=== PATIENT | female | born 1950 | race Caucasian/White ===

== ENCOUNTER 2021-01-01 10:10 | Outpatient (CLI) | payer MEDICARE, BC ==
[2021-01-01 11:39] LABS: Bilirubin Neg (Negative); Blood, Urine 10 (Negative); Clarity Clear (Clear); Glucose, Urine (Dipstick) Normal (Negative); Ketone, Urine Negative (Negative); Leukocyte Negative (Negative); Nitrite Negative (Negative); Protein, Urine (Dipstick) Negative (Neg-Trace); Specific Gravity, Urine 1.015 (1.002-1.036); Urobilinogen Normal mg/dL (Less than 2)
[2021-01-01 11:49] LABS: #Basophils 0.1 10x3/uL (0.0-0.2); #Eosinphils 0.3 10x3/uL (0.0-0.5); #Monocytes 0.5 10x3/uL (0.0-1.1); #Neutrophils 3.5 10x3/uL (1.5-8.4); %Basophils 0.7 % (0.0-2.0); %Eosinophils 4.4 % (0.0-6.0); %Lymphocytes 37.1 % (18.0-47.0); %Monocytes 6.9 % (0.0-10.0); %Neutrophils 50.6 % (40.0-75.0); Hemoglobin 11.7 g/dL (12.0-15.5); Mean Corpuscular HGB CONC 30.8 g/dL (32.0-36.0); Mean Corpuscular Hemoglobin 25.4 pg (27.0-33.0); Mean Corpuscular Volume 82.4 fl (81.6-98.3); Mean Platelet Volume 10.8 fl (7.4-10.4); Platelet Count 275 10x3/uL (150-450); RBC Distribution Width 15.5 % (11.5-14.5); Red Blood Cell (RBC) Count 4.61 10x6/uL (3.90-5.03)
[2021-01-01 11:57] LABS: Bacteria/HPF None Seen HPF (None Seen); RBC/HPF 0-3 HPF (0-3)
== END 2021-01-01 10:11 | disposition home or self-care (01) ==
LOC: LABBT 10:10
PROVIDERS: ATTEND Orthopaedic Surgery Hand Surgery
DX: Z01.818 Encounter for other preprocedural examination (principal); S63.292A Dislocation of distal interphalangeal joint of right middle finger, initial encounter; M19.041 Primary osteoarthritis, right hand
CPT/HCPCS: 81001; 85025; 93005; 93010

== ENCOUNTER 2022-03-13 13:40 | Outpatient (CLI) | payer MEDICARE, BC ==
[2022-03-13 16:22] LABS: #Eosinphils 0.2 10x3/uL (0.0-0.5); #Monocytes 0.5 10x3/uL (0.0-1.1); %Basophils 0.3 % (0.0-2.0); %Eosinophils 2.6 % (0.0-6.0); %Lymphocytes 29.4 % (18.0-47.0); %Monocytes 7.6 % (0.0-10.0); %Neutrophils 59.9 % (40.0-75.0); Hemoglobin 12.1 g/dL (12.0-15.5); Mean Corpuscular HGB CONC 31.3 g/dL (32.0-36.0); Mean Corpuscular Hemoglobin 26.1 pg (27.0-33.0); Mean Corpuscular Volume 83.4 fl (81.6-98.3); Mean Platelet Volume 10.8 fl (7.4-10.4); Platelet Count 265 10x3/uL (150-450); RBC Distribution Width 15.6 % (11.5-14.5); Red Blood Cell (RBC) Count 4.63 10x6/uL (3.90-5.03); White Blood Cell (WBC) Count 6.6 10x3/uL (3.5-10.5)
== END 2022-03-13 13:41 | disposition home or self-care (01) ==
LOC: LABBT 13:40
PROVIDERS: ATTEND Orthopaedic Surgery Hand Surgery
DX: Z01.812 Encounter for preprocedural laboratory examination (principal); T84.84XA Pain due to internal orthopedic prosthetic devices, implants and grafts, initial encounter; Z20.822 Contact with and (suspected) exposure to COVID-19
CPT/HCPCS: 85025; 87811

== ENCOUNTER 2022-03-17 12:04 | Day surgery (SDC) | payer MEDICARE, BC ==
[2022-03-14 13:03] VITALS: BMI 23.0
[2022-03-17] MEDS ORDERED: CEFAZOLIN 2 GM VIAL ONE (12:36)
[2022-03-17] MEDS ORDERED: Sodium Chloride 0.9% 100 ML ONE (12:36)
[2022-03-17] MEDS ORDERED: Lidocaine 1% MPF 2 ML VIAL ONE ×2 (12:36→14:06)
[2022-03-17] MEDS ORDERED: Bacitracin Zinc Ointment 30 gm TUBE ONE (12:58)
[2022-03-17] MEDS ORDERED: Neomycin-Polymyxin 1 ML AMP ONE (12:58)
[2022-03-17] MEDS ORDERED: Bupivacaine PF 0.5% 30 ML VIAL ONE (12:58)
[2022-03-17] MEDS ORDERED: Thrombin 5000 UNITS/5 ML VIAL ONE (12:58)
[2022-03-17] MEDS ORDERED: fentaNYL Citrate/PF 100 MCG/2 ML SYRINGE ONE (13:15)
[2022-03-17] MEDS ORDERED: ePHEDrine 50 MG/ML VIAL ONE (14:06)
[2022-03-17] MEDS ORDERED: Ondansetron PF 4 MG/2 ML Vial ONE (14:06)
[2022-03-17] MEDS ORDERED: Metoclopramide HCl 10 MG/2 ML VIAL ONE (14:06)
[2022-03-17] MEDS ORDERED: PROPOFOL 200 MG/20 ML VIAL ONE (14:06)
[2022-03-17] MEDS ORDERED: Dexamethasone 20 MG/5 ML VIAL ONE (14:06)
[2022-03-17] MEDS ORDERED: Ketorolac Tromethamine 30 MG/ML VIAL ONE (15:30)
== END 2022-03-17 16:35 | disposition home or self-care (01) ==
LOC: SDC 12:04
PROVIDERS: ATTEND Orthopaedic Surgery Hand Surgery
PROC: 0RPX04Z Removal of Internal Fixation Device from Left Finger Phalangeal Joint, Open Approach (ICD-10-PCS; principal; 2022-03-17)
PROC: 0RCX0ZZ Extirpation of Matter from Left Finger Phalangeal Joint, Open Approach (ICD-10-PCS; 2022-03-17)
DX: M60.242 Foreign body granuloma of soft tissue, not elsewhere classified, left hand (principal); T84.84XA Pain due to internal orthopedic prosthetic devices, implants and grafts, initial encounter; Z79.82 Long term (current) use of aspirin; Z79.899 Other long term (current) drug therapy; Z18.89 Other specified retained foreign body fragments; Y79.3 Surgical instruments, materials and orthopedic devices (including sutures) associated with adverse incidents
CPT/HCPCS: 76000; J0690; J1100; J1885; J2405; J2704; J2765; J3490; S0020

== ENCOUNTER 2022-05-01 13:53 | Outpatient (CLI) | payer MEDICARE, BC | END 2022-05-01 13:54 | disposition home or self-care (01) | LOC: BICMAMMO 13:53 | PROVIDERS: ATTEND Obstetrics & Gynecology | DX: N63.11 Unspecified lump in the right breast, upper outer quadrant (principal); N63.41 Unspecified lump in right breast, subareolar | CPT/HCPCS: 76642; 77066; G0279 ==